=== PATIENT | female | born 1960 | race Caucasian/White ===

== ENCOUNTER 2025-04-29 20:35 | Emergency (ER) | payer MEDICARE, MEDICAID, SELFPAY ==
--- NOTE | ~2025-04-29 | XR_ITS ---
CHEST RADIOGRAPH CLINICAL HISTORY: chest pain . COMPARISON: 04/27/2024 TECHNIQUE: Single portable view of the chest. FINDINGS The cardiomediastinal silhouette is unremarkable. Blunting of the left costophrenic sulcus suggesting a small left-sided pleural effusion. Remainder of the lungs are clear. IMPRESSION: Small left-sided pleural effusion without focal infiltrate. Reviewed, dictated and finalized at location A.
[2025-04-29 20:38] VITALS: BP 121/61; PULSE 84; RESP 16; TEMP 36.5; O2SAT 95
--- NOTE | 2025-04-29 20:44 | ECG_ITS ---
Test Date: 2025-04-29 20:48:35 Measurements Intervals [place] Rate: 83 P: 21 ND: 145 QRS: -9 QRSD: 84 T: 21 QT: 385 QTc: 454 Interpretive Statements SINUS RHYTHM BORDERLINE T WAVE ABNORMALITY- INFERIOR LEADS BORDERLINE ECG No previous ECG available for comparison Electronically Signed On 04-29-2025 20:56:03 CDT by Leonel Fuchs D.O.
--- NOTE | 2025-04-29 22:53 | ED_ITS ---
HPI - Chest Pain General Chief Complaint: Chest Pain Stated Complaint: all over body pain Time Seen by Provider: 04/29/25 22:44 History of Present Illness HPI narrative: 64-year-old female with history of intellectual disability, hyperlipidemia, hypertension, COPD presents to emergency department via EMS from [facility] for chest pain that started at 4:00 p.m. today. Patient states she was coloring when she started having pain in the center of her chest. States pain is worse with deep inspiration. She denies cough, congestion. She reports associated shortness of breath. Denies abdominal pain or fever. Patient is on Xarelto per her medication list. She denies cardiac history but does report a family history of cardiac disease. States she stopped smoking 25 years ago. Related Data Allergies Allergy/AdvReac Type Severity Reaction Status Date / Time Penicillins Allergy Unknown Verified 05/29/18 15:04 BEE STING Allergy Mild LOCAL Uncoded 06/04/18 13:20 Review of Systems 2 Review of Systems: All systems reviewed & are unremarkable except as noted in HPI and below PMFSH Family History Family History Other Asthma Depression Diabetes mellitus Family history of arthritis Hypertension Social History Social History Smoking status: Heavy tobacco smoker Alcohol intake: never Exam 2 Narrative: GENERAL: Well-appearing, well-nourished, and in no acute distress. HEAD: Normocephalic, atraumatic. EYES: EOMI. ENT: Nares clear, no rhinorrhea or epistaxis. Mucous membranes moist. NECK: Supple. CHEST: Clear to auscultation. No respiratory distress. No wheezing, rales or rhonchi. Point tenderness to left costosternal border with no overlying skin changes HEART: Regular rate and rhythm. No murmur heard. Normal peripheral pulses. ABDOMEN: Soft, nontender, nondistended, normal active bowel sounds. EXTREMITIES: Normal range of motion. Mild edema to BLE SKIN: Erythematous tender rash to the labia and groin in the distribution of her depends consistent with irritant contact dermatitis. No satellite lesions NEURO: No focal deficits. Alert and oriented x3 Course Vital Signs Vital signs: Vital Signs Temperature 97.7 F 04/29/25 20:38 Pulse Rate 84 04/29/25 20:38 Respiratory Rate 16 04/29/25 20:38 Blood Pressure 121/61 04/29/25 20:38 Pulse Oximetry 95 04/29/25 20:38 Oxygen Delivery Room Air 04/29/25 20:38 Temperature 97.7 F 04/29/25 20:38 Pulse Rate 84 04/29/25 20:38 Respiratory Rate 16 04/29/25 20:38 Blood Pressure 121/61 04/29/25 20:38 Pulse Oximetry 95 04/30/25 00:14 Oxygen Delivery Room Air 04/30/25 00:14 MDM - Chest Pain MDM Narrative Medical decision making narrative: 64-year-old female presents to the emergency department via EMS from [facility] for chest pain and shortness of breath that started at 4:00 p.m. today while she was coloring. States pain is worse with deep inspiration. Vital signs are stable. Exam is notable for tenderness to the left costosternal border on palpation. EKG shows normal sinus rhythm with rate of 83 ppm, normal MN interval, normal QRS duration, QTC, borderline T-wave abnormalities in lead 3, no ST elevations or depressions. Repeat EKGs throughout ED visit are unchanged. Troponin and delta troponin are undetectable. Lab work shows no leukocytosis or anemia. Chemistries with hyperglycemia of 455, normal bicarb, anion gap of 13. Findings not consistent with DKA. Patient was given subcutaneous insulin. Urinalysis with glucosuria, no UTI. Lipase is within normal limits. Chest x-ray shows a small left-sided pleural effusion without focal infiltrate. ProBNP is within normal limits. Patient was updated on results. She received Tylenol, Flexeril, lidocaine patch for chest wall pain, likely costochondritis. Patient was also found to have a blanching erythematous rash in the distribution of her depends with no satellite lesions. This is consistent with irritant contact dermatitis. She was given a barrier cream. Patient will will be discharged back to her senior living facility. She was advised to f/u with her PCP and given strict ED return precautions. Lab Data 04/29/25 23:16 04/29/25 23:16 Labs: Lab Results 04/29/25 04/30/25 04/30/25 Range/Units 23:16 01:28 02:24 WBC 5.9 (4.5-10.0) K/mm3 RBC 4.54 (4.2-5.4) M/mm3 Hgb 13.2 (12.0-15.0) g/dL Hct 41.8 (37.0-47.0) % MCV 92.1 (80-100) fl MCH 29.1 (26-34) pg MCHC 31.6 L (32-36) g/dl RDW 13.8 (11.5-14.5) % Plt Count 248 (150-375) k/mm3 MPV 10.9 H (7.4-10.4) fl Immature Gran % (Auto) 0.3 (0-0.5) % Neut % (Auto) 44.0 L (45.5-73.1) % Lymph % (Auto) 44.3 H (18.3-44.2) % [place] % (Auto) 9.7 H (2.6-8.5) % Eos % (Auto) 1.0 (0-4.4) % Baso % (Auto) 0.7 (0.2-1.2) % Lymph # (Auto) 2.61 (0.9-3.2) K/mm3 [place] # (Auto) 0.6 (0.1-0.6) K/mm3 Eos # (Auto) 0.1 (0-0.3) K/mm3 Baso # (Auto) 0.0 (0.0-0.1) K/mm3 Abs Immat Gran (auto) 0.02 (0.00-0.031) K/mm3 Absolute Neuts (auto) 2.6 (1.3-6.7) K/mm3 Absolute Nucleated RBC 0.000 (0.0-0.012) K/mm3 Nucleated RBC % 0.0 (0.0-0.2) % PT 19.0 H (11.1-14.7) Seconds INR 1.6 APTT 34.6 (22.3-36.8) Seconds Sodium 136 L (137-145) mmol/L Potassium 4.0 (3.4-5.0) mmol/L Chloride 97 L (98-107) mmol/L Carbon Dioxide 26 (22-30) mmol/L Anion Gap 13 H (4-12) mmol/L BUN 20 H (7-17) mg/dL Creatinine 0.94 (0.7-1.0) mg/dL Estim Creat Clear Calc Not Reportable Estimated GFR 60 (59 - ) Glucose 455 H (65-110) mg/dL POC Capillary Glucose 410 H (65-105) mg/dl Calcium 9.6 (8.4-10.2) mg/dL Total Bilirubin 0.2 (0.2-1.3) mg/dL AST 41 H (14-36) U/L ALT 29 (6-35) U/L Alkaline Phosphatase 57 (38-126) U/L Troponin I < 0.012 Pending (0.000-0.034) ng/mL NT-Pro-B Natriuret Pep 74 (19.9-100) pg/mL Total Protein 8.0 (6.3-8.2) g/dL Albumin 3.9 (3.5-5.1) g/dL Lipase 88 (23-300) U/L Urine Color Yellow (Yellow) Urine Appearance Clear (Clear) Urine pH 6.5 (5.0-9.0) Ur Specific [place] 1.036 H (1.001-1.035) Urine Protein Negative (Negative) mg/dL Urine Glucose (UA) 3+ H (Negative) mg/dL Urine Ketones Negative (Negative) mg/dL Ur Blood (Man) Negative (Negative) Urine Nitrate Negative (Negative) Urine Bilirubin Negative (Negative) Urine Urobilinogen 0.2 (<2.0) mg/dL Leukocyte Esterase Rfl Negative (Negative) LAURA/UL Discharge Plan Discharge Clinical Impression: Costochondritis, Irritant contact dermatitis, Hyperglycemia Patient Disposition: NH Snf/Asst Living Condition: Stable Instructions: Costochondritis (ED), Chest Wall Pain (ED) Additional Instructions: Please follow-up closely with your primary care provider. Return to the emergency department if you develop any new or worsening symptoms. Patient Language: Slovenian Prescriptions: New zinc oxide 15 % cream 1 applic topical BID PRN (Reason: diaper rash) Qty: 99 0RF acetaminophen 500 mg capsule 500 mg PO Q6H PRN (Reason: pain) Qty: 14 0RF lidocaine 5 % adhesive patch,medicated 1 patch topical DAILY Qty: 15 0RF Rx Instructions: leave on most painful area for up to 12 hrs. do not use more than 1 patch in a 24-hour period. cyclobenzaprine 5 mg tablet 5 mg PO TID PRN (Reason: muscle spasm) Qty: 14 0RF No Action exenatide microspheres [Bydukyaw BCi] 2 mg/0.85 mL auto-injector See Rx Instructions .ROUTE .COMPLEX Qty: 3.4 0RF Dose Instruction: INJECT 2MG SUBCUTANEOUSLY EVERY 7 DAYS Rx Instructions: INJECT 2MG SUBCUTANEOUSLY EVERY 7 DAYS Follow-up/Referrals: UNKNOWN,DOCTOR [Non-Staff] - Quality HEART score for chest pain patients History: slightly suspicious ECG: normal Age: > 45 and < 65 years Risk factors: > or = to 3 risk factors of atherosclerotic disease Troponin: < or = to 1x normal limit Heart score: 3
[2025-04-29] MEDS: ACETAMINOPHEN 500 MG TABLET 1000 MG PO (23:24)
[2025-04-29 23:25] LABS: Add Urine Microscopic? NO; Appearance Urine Clear (Clear); Bilirubin Urine Negative (Negative); Blood Urine Negative (Negative); Color Urine Yellow (Yellow); Glucose Urine UA 3+ mg/dL (Negative); Ketones Urine Negative (Negative); Leukocyte Esterase Ur Negative LEU/UL (Negative); Nitrate Urine Negative (Negative); Protein Urine Negative (Negative); Specific Grav Ur 1.036 (1.001-1.035); Urobilinogen Urine 0.2 mg/dL (<2.0); pH Urine 6.5 (5.0-9.0)
[2025-04-29 23:27] LABS: Basophils Percent Auto 0.7 % (0.2-1.2); Eosinophils Absolute Auto 0.1 K/mm3 (0-0.3); Hematocrit 41.8 % (37.0-47.0); Hemoglobin 13.2 g/dL (12.0-15.0); Immature Granulocyte Absolute 0.02 K/mm3 (0.00-0.031); Immature Granulocyte Percent A 0.3 % (0-0.5); Lymphocytes Absolute Auto 2.61 K/mm3 (0.9-3.2); Lymphocytes Percent Auto 44.3 % (18.3-44.2); Mean Corpuscular HGB Conc 31.6 g/dl (32-36); Mean Corpuscular Hemoglobin 29.1 pg (26-34); Mean Corpuscular Volume 92.1 fl (80-100); Mean Platelet Volume 10.9 fl (7.4-10.4); Monocytes Absolute Auto 0.6 K/mm3 (0.1-0.6); Monocytes Percent Auto 9.7 % (2.6-8.5); Neutrophils Absolute Auto 2.6 K/mm3 (1.3-6.7); Platelet Count Result 248 k/mm3 (150-375); Red Blood Count 4.54 M/mm3 (4.2-5.4); Red Cell Distribution Width 13.8 % (11.5-14.5); White Blood Count 5.9 K/mm3 (4.5-10.0)
[2025-04-29 23:35] LABS: Alanine Aminotransferase 29 U/L (6-35); Albumin Level 3.9 g/dL (3.5-5.1); Alkaline Phosphatase 57 U/L (38-126); Anion Gap 13 mmol/L (4-12); Aspartate Amino Transferase 41 U/L (14-36); Bilirubin,Total 0.2 mg/dL (0.2-1.3); Blood Urea Nitrogen 20 mg/dL (7-17); Calcium 9.6 mg/dL (8.4-10.2); Carbon Dioxide 26 mmol/L (22-30); Chloride 97 mmol/L (98-107); Estimated Glomerular Filt Rate 60; Glucose 455 mg/dL (65-110); Lipase 88 U/L (23-300); Sodium 136 mmol/L (137-145)
[2025-04-29 23:46] LABS: INR 1.6; NT Pro B Type Natriuretic Pept 74 pg/mL (19.9-100); Troponin I < 0.012 ng/mL (0.000-0.034)
[2025-04-29 23:47] LABS: Partial Thromboplastin Time 34.6 Seconds (22.3-36.8)
[2025-04-29] MEDS: INSULIN HUMAN REGULAR (*BKC) 100 UNITS/ML 7 UNITS SUB-Q (23:51)
[2025-04-30 00:14] VITALS: O2SAT 95
[2025-04-30] MEDS: CYCLOBENZAPRINE HCL 5 MG TABLET PO (00:53)
[2025-04-30] MEDS: LIDOCAINE 5% PATCH 1 PATCH TRANSDERM (00:53)
[2025-04-30 01:30] LABS: Glucose Point of Care 410 mg/dl (65-105)
--- NOTE | 2025-04-30 02:16 | ECG_ITS ---
Test Date: 2025-04-30 00:39:43 Measurements Intervals [place] Rate: 76 P: 58 FL: 148 QRS: -1 QRSD: 82 T: 29 QT: 402 QTc: 454 Interpretive Statements SINUS RHYTHM BORDERLINE ST-T WAVE ABNORMALITY- DIFFUSE LEADS BASELINE ARTIFACT- I, II, AVR, AVL, AVF, V1-V6 BORDERLINE ECG Compared to ECG 04/29/2025 20:48:35 NO SIGNIFICANT CHANGE Electronically Signed On 04-30-2025 06:03:23 CDT by Leonel Fuchs D.O.
--- NOTE | 2025-04-30 02:28 | ECG_ITS ---
Test Date: 2025-04-30 02:28:39 Measurements Intervals [place] Rate: 78 P: 44 CT: 164 QRS: -2 QRSD: 87 T: 16 QT: 391 QTc: 446 Interpretive Statements SINUS RHYTHM NONSPECIFIC T-WAVE ABNORMALITY- ANT/INF LEADS BORDERLINE ECG Compared to ECG 04/30/2025 00:39:43 NO SIGNIFICANT CHANGE Electronically Signed On 04-30-2025 09:53:22 CDT by Leonel Fuchs D.O.
[2025-04-30] MEDS: ZINC OXIDE 20% OINT 30 GM TUBE 1 APPLIC TOPICAL (02:47)
[2025-04-30 02:52] LABS: Troponin I < 0.012 ng/mL (0.000-0.034)
--- NOTE | 2025-04-30 03:25 | PC.NURSE ---
[facility]ed [phone] and after 15 mins wait time, the call got disconnected.
== END 2025-04-30 03:56 ==
PROVIDERS: Emergency Medicine; Emergency Provider Physician Assistant; PCP Internal Medicine
DX: M94.0 Chondrocostal junction syndrome [Tietze] (principal); L24.9 Irritant contact dermatitis, unspecified cause; R73.9 Hyperglycemia, unspecified; R06.02 Shortness of breath; I10 Essential (primary) hypertension; E78.5 Hyperlipidemia, unspecified; J44.9 Chronic obstructive pulmonary disease, unspecified; F79 Unspecified intellectual disabilities; Z87.891 Personal history of nicotine dependence; R94.31 Abnormal electrocardiogram [ECG] [EKG]
CPT/HCPCS: 36415; 71045; 80053; 81003; 82948; 83690; 83880; 84484; 85025; 85610; 85730; 93005; 99284; A9270; J1815

== ENCOUNTER 2025-09-02 20:11 | Emergency (ER) | payer MEDICARE, MEDICAID, SELFPAY ==
[2025-09-02 20:14] VITALS: BP 107/62; PULSE 87; RESP 16; TEMP 36.8; O2SAT 97
--- NOTE | 2025-09-03 00:28 | ED_ITS ---
HPI - General Adult General Chief complaint: Psychiatric Symptoms Stated complaint: Hurt feelings Time Seen by Provider: 09/03/25 00:11 History of Present Illness HPI narrative: 65-year-old female with history of bipolar disorder and mental retardation presenting to the emergency depart with aggressive behavior. Patient kicked 1 of the staff members. Patient states that they were trying to take away her coloring pencils and paper for an unknown reason and she became agitated. Mckay odonnell denies any complaints otherwise. Patient states she has no physical symptoms. Patient has been at the same facility for several years, previous visits to the ER for similar complaints of aggressive behavior and discharge back to the facility. Related Data Allergies Allergy/AdvReac Type Severity Reaction Status Date / Time Penicillins Allergy Unknown Verified 05/29/18 15:04 BEE STING Allergy Mild LOCAL Uncoded 06/04/18 13:20 [facility] Family History Family History Other Asthma Depression Diabetes mellitus Family history of arthritis Hypertension Social History Social History Smoking status: Heavy tobacco smoker Alcohol intake: never Exam Narrative: APPEARANCE: No apparent distress. A&O x3 Head: atraumatic. EYES: EOMI, NOSE: Atraumatic NECK: Trachea midline RESPIRATORY: No increased rate of breathing Clear auscultation CARDIOVASCULAR: RRR, no peripheral edema ABDOMINAL: Non-distended soft nontender MUSCULOSKELETAl: No obvious deformities NEURO: Alert. Moving 4/4 extremities SKIN:: Warm, dry. Normal color PSYCHIATRIC: calm Course Vital Signs Vital signs: Vital Signs Temperature 36.8 C 09/02/25 20:14 Pulse Rate 87 09/02/25 20:14 Respiratory Rate 16 09/02/25 20:14 Blood Pressure 107/62 09/02/25 20:14 Pulse Oximetry 97 09/02/25 20:14 Oxygen Delivery Room Air 09/02/25 20:14 Temperature 36.8 C 09/02/25 20:14 Pulse Rate 89 09/03/25 00:47 Respiratory Rate 18 09/03/25 00:47 Blood Pressure 124/61 09/03/25 00:47 Pulse Oximetry 96 09/03/25 00:47 Oxygen Delivery Room Air 09/03/25 00:47 Medical Decision Making MDM Narrative Medical decision making narrative: 65-year-old female with history of bipolar disorder and mental retardation presenting to the emergency department with aggressive behavior. Patient kicked 1 of the staff members. Patient states that they were trying to take away her coloring pencils and paper for an unknown reason and she became agitated. Patient denies any complaints otherwise. Patient states she has no physical sy mptoms. Patient has been at the same facility for several years, previous visits to the ER for similar complaints of aggressive behavior and discharge back to the facility. Patient has normal vital signs and no physical complaints. Mentation is at her baseline. The patient has a history of aggressive outbursts on review of the EMR and presently is calm and cooperative. No indications for workup as she is at her baseline mentation and no trauma or physical complaints. No emergent medical concerns today. Will be discharged back to her facility. Medical Records Medical records reviewed: Yes I reviewed the external patient's medical records. Vital Signs Vital Signs: Vital Signs Temperature 36.8 C 09/02/25 20:14 Pulse Rate 87 09/02/25 20:14 Respiratory Rate 16 09/02/25 20:14 Blood Pressure 107/62 09/02/25 20:14 Pulse Oximetry 97 09/02/25 20:14 Oxygen Delivery Room Air 09/02/25 20:14 Temperature 36.8 C 09/02/25 20:14 Pulse Rate 89 09/03/25 00:47 Respiratory Rate 18 09/03/25 00:47 Blood Pressure 124/61 09/03/25 00:47 Pulse Oximetry 96 09/03/25 00:47 Oxygen Delivery Room Air 09/03/25 00:47 Lab Data Lab results reviewed: Yes I reviewed the patient's lab results. Discharge Plan Discharge Clinical Impression: Emotional upset Patient Disposition: NH Nursing Home/Asst Living Condition: Stable Instructions: Antibiotic Form Additional Instructions: Follow-up with your primary care provider. Return with emergencies. Patient Language: Kazakh Prescriptions: No Action zinc oxide 15 % cream 1 applic topical BID PRN (Reason: diaper rash) Qty: 99 0RF acetaminophen 500 mg capsule 500 mg PO Q6H PRN (Reason: pain) Qty: 14 0RF lidocaine 5 % adhesive patch,medicated 1 patch topical DAILY Qty: 15 0RF Rx Instructions: leave on most painful area for up to 12 hrs. do not use more than 1 patch in a 24-hour period. cyclobenzaprine 5 mg tablet 5 mg PO TID PRN (Reason: muscle spasm) Qty: 14 0RF exenatide microspheres [Bydureon BCise] 2 mg/0.85 mL auto-injector See Rx Instructions .ROUTE .COMPLEX Qty: 3.4 0RF Dose Instruction: INJECT 2MG SUBCUTANEOUSLY EVERY 7 DAYS Rx Instructions: INJECT 2MG SUBCUTANEOUSLY EVERY 7 DAYS Follow-up/Referrals: Bisi,MD Michael [Primary Care Provider, Unknown] Stand Alone Forms: Skilled Nursing Discharge Time of Disposition: 00:28
[2025-09-03 00:47] VITALS: BP 124/61; PULSE 89; RESP 18; O2SAT 96
--- NOTE | 2025-09-03 01:45 | PC.NURSE ---
Pt called out on the call light stating she is menstruating. This RN went into pt room and checked where the bleeding was coming from. Pt was bleeding from her vaginal and was given a pad. pt states he was cramping. RN asked pt hen the last time her last period was and she states 4 months ago. No obvious injuries noted to pt vagina. MD notified. No new orders placed.
== END 2025-09-03 02:15 ==
LOC: ANHED 09-03 00:43
PROVIDERS: Emergency Provider Student in an Organized Health Care Education/Training Program; PCP Internal Medicine
DX: F48.9 Nonpsychotic mental disorder, unspecified (principal); F79 Unspecified intellectual disabilities; F17.200 Nicotine dependence, unspecified, uncomplicated
CPT/HCPCS: 99281